=== PATIENT | male | born 1965 | race Caucasian/White ===

== ENCOUNTER 2025-01-29 18:23 | Emergency (ER) | payer SELFPAY ==
[2025-01-29 18:27] VITALS: BP 145/68
[2025-01-29 22:10] VITALS: BP 140/78
[2025-01-30 00:28] VITALS: BP 135/76
[2025-01-30 00:40] LABS: % Basophils 0.5 % (0-2); % Eosinophils 4.1 % (0-6); % Immature Granulocytes 0.5 % (0-0.5); % Lymphocytes 18.4 % (20.5-51.1); % Monocytes 9.3 % (1.7-9.3); % Neutrophils 67.2 % (42.2-75.2); Absolute Eosinophils 0.3 10^3/uL (0-0.7); Absolute Lymphocytes 1.5 10^3/uL (1.2-3.4); Absolute Monocytes 0.8 10^3/uL (0.1-0.6); Absolute Neutrophils 5.6 10^3/uL (1.4-6.5); Hematocrit 32.5 % (39.0-52.0); Mean Corp Hgb Conc. 33.8 g/dL (33.0-37.0); Mean Corpuscular Hgb 31.5 pg (27.0-31.0); Mean Corpuscular Volume 93.1 fL (80.0-94.0); Mean Platelet Volume 8.8 fL (7.4-10.4); Nucleated Red Blood Cells % 0 % (-); Platelet Count 406 10^3/uL (130-400); Red Blood Cell Count 3.49 10^6/uL (4.70-6.10); Red Cell Dist. Width 12.2 % (11.5-14.5); White Blood Cell Count 8.4 10^3/uL (4.8-10.8)
[2025-01-30 00:54] LABS: Blood Urea Nitrogen 15 mg/dl (9-20); Calcium 9.1 mg/dl (8.4-10.2); Carbon Dioxide 24 mmol/L (22-30); Chloride 108 mmol/L (98-107); Glucose 110 mg/dl (70-99); Potassium 4.4 mmol/L (3.5-5.1); Sodium 140 mmol/L (135-145); eGFR > 60.00
[2025-01-30 01:00] VITALS: BP 115/73
--- NOTE | 2025-01-30 03:12 | ED.GENMED ---
History of Present Illness
General
Chief Complaint: Wound Check/Suture Removal
Source: patient
Time Seen by Provider: 01/29/25 22:39
History of Present Illness
History of Present Illness:
60-year-old male presents to the emergency room complaining of pain and swelling in his right hip rating down his knee. believes the swelling seems to have developed more recently. There is no fever, chills, nausea or vomiting. Patient had a
fall about 2 weeks ago suffering hip fracture for which she had a hip replacement performed at [facility]. Patient also complains of knee pain. He was seen at a another hospital where he had an ultrasound for DVT which was negative and
an x-ray of his knee which apparently showed arthritic changes but no acute fracture. Today a physical therapist came to evaluate the patient at stated they could not do therapy because of the swelling and pain he was experiencing in his hip.
Phy Exam
Physical Exam
Physical Exam:
General: Awake, Alert, Oriented X3. No acute distress.
Vitals: unremarkable
Head: Atraumatic
Eyes: Pupils equal, EOMI
Throat: Airway intact, no exudates
Neck: Trachea midline
Lungs: Clear and equal b/l
Heart: Regular rate, no murmurs
Abd: Soft, Nontender, No pulsatile mass
Neuro: Nonfocal
Skin: Warm, dry, no rash
Extremities: pulses equal b/l, right hip incision intact. There is no erythema or purulence noted about the wound. I am unable to express any discharge from the wound. There is significant fullness and firmness palpated about the right hip down
to the mid thigh. There is no erythema noted in any of this area.
Course
Orders/Labs/Results
Orders:
Orders
01/29/25 23:58
Basic Metabolic Panel Urgent
01/29/25 23:59
Complete Blood Count/With Diff Urgent
01/30/25 00:49
CT Lower Ext W/iv Cont Rt Urgent
Reason For Exam: swelling rigth thigh pod 13 from total hip
Abnormal Lab Results
01/30/25
00:30
RBC 3.49 L 10^6/uL
(4.70-6.10)
Hgb 11.0 L g/dL
(13.0-18.0)
Hct 32.5 L %
(39.0-52.0)
MCH 31.5 H pg
(27.0-31.0)
Plt Count 406 H 10^3/uL
(130-400)
Absolute Monos (auto) 0.8 H 10^3/uL
(0.1-0.6)
Lymphocytes % 18.4 L %
(20.5-51.1)
Chloride 108 H mmol/L
(98-107)
Creatinine 0.6 L mg/dL
(0.7-1.3)
Glucose 110 H mg/dl
(70-99)
01/30/25 00:30
01/30/25 00:30
Vital Signs
Initial and Last Documented VS:
Initial Vital Signs
Temp Pulse Resp BP Pulse Ox
97.7 F 61 16 145/68 100
01/29/25 18:27 01/29/25 18:27 01/29/25 18:27 01/29/25 18:27 01/29/25 18:27
Last Documented Vital Signs
Temp Pulse Resp BP Pulse Ox
97.7 F 57 18 115/73 97
01/29/25 18:27 01/30/25 00:31 01/30/25 00:31 01/30/25 01:00 01/30/25 03:17
MDM/Problems Addressed
Differential Diagnosis Includes:
Postoperative hematoma, postoperative fluid collection, abscess
MDM/Problems Addressed:
Patient presents with pain, fullness swelling right hip. Overall I feel like this is a postoperative fluid collection or hematoma that is uncomplicated. The patient's white count is normal there is no physical exam findings to suggest an
infection. Patient should follow-up with the surgeon who performed the surgery which he does have an appointment with her in the coming days. Patient instructed to return to [facility] or [facility] where the surgeon operates
if he develops any fever or other concerns.
*Radiology
Radiology exam reviewed: radiology read reviewed
*Pulse Oximetry
SaO2: 97
Oxygen Mode of Delivery: Room air
Patient hypoxic: no
*Critical Care Note
Total Time (30-74mins, 75-104mins- exclusive of procedures): Not Applicable
ED Attending Note
-
Portions of this chart may have been created with voice recognition software.� Occasional wrong word or��sound alike� substitutions may have occurred due to the inherent limitations of voice recognition software.
Discharge Plan
Departure
Patient Disposition: Home (Routine Discharge)
Date of Disposition: 01/30/25
Time of Disposition: 03:15
Patient with high blood pressure during this ER visit?: No
Discharge Problem:
Postoperative collection
Prescriptions:
No Action
aspirin [Aspir-81] 81 mg Tablet,Delayed Release (Dr/Ec)
81 mg PO BID
acetaminophen [Tylenol Arthritis Pain] 650 mg Tablet Extended Release
1,300 mg PO Q12H
Referrals:
NONE,* [Family Provider, Internal Medicine]
Activity Restrictions/Additional Instructions:
The CAT scan shows that you do have a relatively large fluid collection in the area where you had your surgery. There is no signs that this is infected at this time. This sometimes happen after surgery and will likely just absorb on its own but
you should make the surgeon aware of this collection. Call their office in the morning and discuss it with the surgeon on-call. You need to return to the emergency room where you had your surgery if you develop a fever.
Interventions
Interventions:
*Risk Screen - Suicide Last Done: 01/29/25 18:27
*General Assessment Last Done: 01/29/25 21:24
*Neglect/Abuse Screening Last Done: 01/29/25 18:27
*ED- Fall Risk Assessment Last Done: 01/29/25 21:24
*ED COVID-19 Vaccine History Last Done: 01/29/25 21:24
ED-Skin Assessment Last Done: 01/29/25 22:12
Discharge Date and Time
Print Language: AZERI
[2025-01-30 03:35] VITALS: BP 126/75
== END 2025-01-30 03:46 | disposition home or self-care (01) ==
LOC: EMR 18:23
PROVIDERS: EMERGENCY PHYSICIAN Emergency Medicine
DX: T84.84XA Pain due to internal orthopedic prosthetic devices, implants and grafts, initial encounter (principal); Y83.8 Other surgical procedures as the cause of abnormal reaction of the patient, or of later complication, without mention of misadventure at the time of the procedure; M25.551 Pain in right hip; M25.561 Pain in right knee; Z96.641 Presence of right artificial hip joint
CPT/HCPCS: 99284; 73701; 80048; 85025; Q9967